=== PATIENT | female | born 1965 | race African-American/Black ===

== ENCOUNTER 2016-09-23 09:48 | Emergency (ER) | payer SELFPAY ==
[2016-09-23] MEDS ORDERED: ASPIRIN 81 MG TABLET, CHEWABLE PO ONE ×2 (10:12→10:21)
--- NOTE | 2016-09-23 10:12 | ER Document Report ---
ED Medical Screen (RME) - General Chief Complaint: Chest Pain Stated Complaint: CHEST PAIN Notes: Is a 51-year-old female who presents emergency department with chest pain that started yesterday. Patient locates the pain in her sternum reproducible on exam. Worse with deep breath. Patient recently treated for bronchitis over the past couple weeks still admits to nonproductive cough. History of asthma but denies history of COPD. Denies any history of hypertension, hyperlipidemia , diabetes, coronary artery disease, previous AL. Patient is a smoker. I have greeted and performed a rapid initial assessment of this patient. A comprehensive ED assessment and evaluation of the patient, analysis of test results and completion of the medical decision making process will be conducted by additional ED providers. TRAVEL OUTSIDE OF THE [place] IN LAST 30 DAYS: No - Related Data Allergies/Adverse Reactions: No Known Allergies Allergy (Verified 09/23/16 09:57) Past Medical History - Past Medical History Cardiac Medical History: Denies: Hx Atrial Fibrillation, Hx Heart Attack Pulmonary Medical History: Reports: Hx Asthma - IN CHILDHOOD -- NO RECENT MEDS Endocrine Medical History: Denies: Hx Diabetes Mellitus Type 1, Hx Diabetes Mellitus Type 2, Hx Hyperthyroidism, Hx Hypothyroidism Renal/ Medical History: Denies: Hx Peritoneal Dialysis GI Medical History: Denies: Hx Gastroesophageal Reflux Disease, Hx Ulcer Psychiatric Medical History: Denies: Hx Anxiety, Hx Depression Past Surgical History: Reports: Hx Cholecystectomy, Hx Tubal Ligation - Immunizations Hx Diphtheria, Pertussis, Tetanus Vaccination: Yes - 2008 Physical Exam - Vital signs Vitals: Temp Pulse Resp BP Pulse Ox 98.0 F 66 20 127/89 H 96 09/23/16 09:57 09/23/16 09:57 09/23/16 09:57 09/23/16 09:57 09/23/16 09:57 - Respiratory Respiratory status: No respiratory distress Chest status: Tender - sternum. pain reproducible on exam, Pain with cough, Pain with deep breathing Breath sounds: Normal Chest palpation: Normal - Cardiovascular Rhythm: Regular Heart sounds: Normal auscultation, S1 appreciated, S2 appreciated Murmur: No Pulses: Normal: Radial Course - Vital Signs Vital signs: Temp Pulse Resp BP Pulse Ox 98.0 F 66 20 127/89 H 96 09/23/16 09:57 09/23/16 09:57 09/23/16 09:57 09/23/16 09:57 09/23/16 09:57
--- NOTE | 2016-09-23 10:26 | ER Document Report ---
ED Cardiac - General Chief Complaint: Chest Pain Stated Complaint: CHEST PAIN Time Seen by Provider: 09/23/16 10:16 Mode of Arrival: Ambulatory Information source: Patient TRAVEL OUTSIDE OF THE [place] IN LAST 30 DAYS: No - HPI Patient complains to provider of: Chest pain Was the onset of pain: Sudden Is the pain a: New problem Chest pain location: Substernal Quality of pain: Stabbing Chest pain radiation location: Right arm Severity now: Moderate Severity at worst: Moderate Chest pain precipitating factors: At Rest Cardiac risk factors: None Positive cardiac history: No Associated symptoms: Fever/chills, Shortness of breath Exacerbated by: Coughing, Deep breaths, Torso movement Relieved by: Nothing Similar symptoms previously: Yes Recently seen / treated by doctor: Yes Notes: Patient is a 51-year-old who presents to the emergency room complaining of sharp stabbing midsternal chest pain that started approximately 2 weeks ago, states she was seen in an emergency room in [place] at the time and diagnosed with bronchitis, she did a course of antibiotics without resolution of symptoms , over the last 24 hours it has become more constant and severe, she reports associated fever and chills, with a nonproductive cough, and shortness of breath , patient denies any past medical problems, she is not a smoker, she did recently travel to [place] by car which is an approximate [address] - Related Data Allergies/Adverse Reactions: No Known Allergies Allergy (Verified 09/23/16 09:57) Past Medical History - General Information source: Patient - Social History Smoking Status: Never Smoker Family History: DM - Mother, Hypertension - Mother Patient has suicidal ideation: No Patient has homicidal ideation: No - Past Medical History Cardiac Medical History: Denies: Hx Atrial Fibrillation, Hx Heart Attack Pulmonary Medical History: Reports: Hx Asthma - IN CHILDHOOD -- NO RECENT MEDS Endocrine Medical History: Denies: Hx Diabetes Mellitus Type 1, Hx Diabetes Mellitus Type 2, Hx Hyperthyroidism, Hx Hypothyroidism Renal/ Medical History: Denies: Hx Peritoneal Dialysis GI Medical History: Denies: Hx Gastroesophageal Reflux Disease, Hx Ulcer Psychiatric Medical History: Denies: Hx Anxiety, Hx Depression Past Surgical History: Reports: Hx Cholecystectomy, Hx Tubal Ligation - Immunizations Hx Diphtheria, Pertussis, Tetanus Vaccination: Yes - 2008 Review of Systems - Review of Systems Constitutional: See HPI EENT: No symptoms reported Cardiovascular: See HPI Respiratory: See HPI Gastrointestinal: No symptoms reported Genitourinary: No symptoms reported Female Genitourinary: No symptoms reported Musculoskeletal: No symptoms reported Skin: No symptoms reported Hematologic/Lymphatic: No symptoms reported Neurological/Psychological: No symptoms reported -: Yes All other systems reviewed and negative Physical Exam - Vital signs Vitals: Temp Pulse Resp BP Pulse Ox 98.0 F 66 20 127/89 H 96 09/23/16 09:57 09/23/16 09:57 09/23/16 09:57 09/23/16 09:57 09/23/16 09:57 Interpretation: Normal - General General appearance: Appears well, Alert - HEENT Head: Normocephalic, Atraumatic Eyes: Normal Pupils: PERRL - Respiratory Respiratory status: No respiratory distress Chest status: Tender - Palpate over midsternum and the right anterior chest wall Breath sounds: Normal Chest palpation: Normal - Cardiovascular Rhythm: Regular Heart sounds: Normal auscultation Murmur: No - Abdominal Inspection: Obese Distension: No distension Bowel sounds: Normal Tenderness: Nontender Organomegaly: No organomegaly - Back Back: Normal, Nontender - Extremities General upper extremity: Normal inspection, Nontender, Normal color, Normal ROM , Normal temperature General lower extremity: Normal inspection, Nontender, Normal color, Normal ROM , Normal temperature, Normal weight bearing. No: Dolores's sign - Neurological Neuro grossly intact: Yes Cognition: Normal Orientation: AAOx4 [place] Coma Scale Eye Opening: Spontaneous [place] Coma Scale Verbal: Oriented Ander Coma Scale Motor: Obeys Commands Ander Coma Scale Total: 15 Speech: Normal Motor strength normal: LUE, RUE, LLE, RLE Sensory: Normal - Psychological Associated symptoms: Normal affect, Normal mood - Skin Skin Temperature: Warm Skin Moisture: Dry Skin Color: Normal Course - Re-evaluation Re-evalutation: 09/23/16 12:44 Laboratory and imaging findings were discussed with patient at bedside which are unremarkable, chest pain is reproducible and has been present for the past 2 weeks, she will be discharged with instructions for follow-up, and advised to return if any additional concerns, patient acknowledges understanding and agreement with this plan - Vital Signs Vital signs: Temp Pulse Resp BP Pulse Ox 98.0 F 66 20 127/89 H 96 09/23/16 09:57 09/23/16 09:57 09/23/16 09:57 09/23/16 09:57 09/23/16 09:57 - Laboratory Result Diagrams: 09/23/16 10:45 09/23/16 10:45 Laboratory results interpreted by me: 09/23/16 09/23/16 10:45 10:45 MCH 26.9 L MCHC 31.5 L D-Dimer 0.54 H - Diagnostic Test Radiology reviewed: Image reviewed, Reports reviewed - EKG Interpretation by Me EKG shows normal: Sinus rhythm Rate: Normal Rhythm: NSR Discharge - Discharge Clinical Impression: Chest wall pain Condition: Stable Disposition: HOME, SELF-CARE Instructions: Anti-Inflammatory Medication ([facility]), Chest Wall Pain ([facility]) Additional Instructions: Follow up with your primary care provider in one to 2 days. Return to the emergency room immediately if symptoms worsen or any additional concerns. Prescriptions: Ibuprofen [Motrin 600 Mg Tablet] 600 mg PO TID #30 tablet
--- NOTE | 2016-09-23 10:51 | RADIOLOGY REPORT (SQ) ---
EXAM DESCRIPTION: CHEST PA/LAT COMPLETED DATE/TIME: 09/23/2016 10:31 am REASON FOR STUDY: chest pain COMPARISON: 11/29/2012 EXAM PARAMETERS: NUMBER OF VIEWS: two views TECHNIQUE: Digital Frontal and Lateral radiographic views of the chest acquired. RADIATION DOSE: NA LIMITATIONS: Poor inspiration. FINDINGS: LUNGS AND PLEURA: No opacities, masses or pneumothorax. No pleural effusion. MEDIASTINUM AND HILAR STRUCTURES: No masses or contour abnormalities. HEART AND VASCULAR STRUCTURES: Heart normal size. No evidence for failure. BONES: No acute findings. HARDWARE: None in the chest. OTHER: No other significant finding. IMPRESSION: Poor inspiration without evidence of acute cardiopulmonary disease. TECHNICAL DOCUMENTATION: JOB ID: [id number] [employer]- All Rights Reserved
[2016-09-23 11:02] LABS: ABSOLUTE EOSINOPHILS # (AUTO) 0.1 10^3/uL (0.0-0.6); ABSOLUTE LYMPHOCYTES (AUTO) 1.6 10^3/uL (0.5-4.7); ABSOLUTE MONOCYTES (AUTO) 0.2 10^3/uL (0.1-1.4); ABSOLUTE NEUT (AUTO) 2.7 10^3/uL (1.7-8.2); BASOPHILS % (AUTO) 0.8 % (0-2); EOSINOPHILS % (AUTO) 2.5 % (0-6); HEMATOCRIT 40.8 % (36.0-47.0); HEMOGLOBIN 12.8 g/dL (12.0-15.5); HGB HCT DIFFERENCE -2.4; LYMPHOCYTES % (AUTO) 34.1 % (13-45); MEAN CORPUSCULAR HEMOGLOBIN 26.9 pg (27.0-33.4); MEAN CORPUSCULAR HGB CONC 31.5 g/dL (32.0-36.0); MEAN CORPUSCULAR VOLUME 86 fl (80-97); MONOCYTES % (AUTO) 5.2 % (3-13); RED BLOOD COUNT 4.77 10^6/uL (3.72-5.28); RED CELL DISTRIBUTION WIDTH 13.9 % (11.5-14.0); SEGMENTED NEUTROPHILS % (AUTO) 57.4 % (42-78); WHITE BLOOD COUNT 4.7 10^3/uL (4.0-10.5)
[2016-09-23 11:17] LABS: ALANINE AMINOTRANSFERASE 38 U/L (9-52); ALKALINE PHOSPHATASE 61 U/L (38-126); ANION GAP 12 (5-19); ASPARTATE AMINO TRANSFERASE 34 U/L (14-36); BILIRUBIN,DIRECT 0.4 mg/dL (0.0-0.4); BILIRUBIN,TOTAL 0.6 mg/dL (0.2-1.3); BLOOD UREA NITROGEN 11 mg/dL (7-20); CALCIUM 8.9 mg/dL (8.4-10.2); CARBON DIOXIDE 27 mmol/L (22-30); CHLORIDE 104 mmol/L (98-107); CREATINE KINASE 46 U/L (30-135); CREATININE RESULT 0.78 mg/dL (0.52-1.25); GLUCOSE 92 mg/dL (75-110); POTASSIUM 4.5 mmol/L (3.6-5.0); SODIUM 142.5 mmol/L (137-145); TOTAL PROTEIN 8.1 g/dL (6.3-8.2)
[2016-09-23 11:31] LABS: CREATINE KINASE MB < 0.22 ng/mL (<4.55); TROPONIN I < 0.012 ng/mL
--- NOTE | 2016-09-23 12:31 | RADIOLOGY REPORT (SQ) ---
EXAM DESCRIPTION: CTA CHEST COMPLETED DATE/TIME: 09/23/2016 12:21 pm REASON FOR STUDY: SOB COMPARISON: None. TECHNIQUE: CT scan of the chest performed using helical scanning technique with dynamic intravenous contrast injection. Images reviewed with lung, soft tissue and bone windows. Reconstructed coronal and sagittal MPR images reviewed. Additional 3 dimensional post-processing performed to develop Maximal Intensity Projection images (FL P). All images stored on PACS. All CT scanners at this facility use dose modulation, iterative reconstruction, and/or weight based d osing when appropriate to reduce radiation dose to as low as reasonably achievable (ALARA). [facility]: Dose Right [facility]: CareDose [facility]: Dose Right [facility]: Teradose 4D [facility]: toucanBox CONTRAST TYPE AND DOSE: 100 Isovue 370- low osmolar. RENAL FUNCTION: BUN 11 creatinine 0.8 RADIATION DOSE: Up-to-date CT equipment and radiation dose reduction techniques were employed. CTDIv ol: 16.5 - 19.2 mGy. DLP: 561 mGy-cm. . LIMITATIONS: Motion. FINDINGS: LUNGS AND PLEURA: No evidence of pulmonary edema or pneumonia. AORTA AND GREAT VESSELS: No aneurysm or dissection. HEART: Cardiomegaly. No pericardial effusion. PULMONARY ARTERIES: No emboli visualized in the main pulmonary arteries or the segmental branches. HILAR AND MEDIASTINAL STRUCTURES: No identified masses or abnormal nodes. HARDWARE: None in the chest. UPPER ABDOMEN: No acute findings. Limited exam. THYROID AND OTHER SOFT TISSUES: No masses. No adenopathy. BONES: No acute or significant finding. 3D MIPS: Confirm above findings. OTHER: No other significant finding. IMPRESSION: No evidence pulmonary embolus. TECHNICAL DOCUMENTATION: JOB ID: [id number] Quality ID # [id number]: Final reports with documentation of one or more dose reduction techniques (e.g., Au tomated exposure control, adjustment of the mA and/or kV according to patient size, use of iterative reconstruction technique) 2010 [employer]- All Rights Reserved
--- NOTE | 2016-09-23 12:40 | EKG REPORT ---
SEVERITY:- BORDERLINE ECG - SINUS RHYTHM BORDERLINE T WAVE ABNORMALITIES : Confirmed by: Jitendra Ojeda MD 23-Sep-2016 12:39:24
[2016-09-23 14:29] VITALS: BP 137/78
== END 2016-09-23 13:30 | disposition home or self-care (01) ==
LOC: ER 09:48
DX: R07.89 Other chest pain (principal); J44.9 Chronic obstructive pulmonary disease, unspecified; Z90.49 Acquired absence of other specified parts of digestive tract; Z98.51 Tubal ligation status
CPT/HCPCS: 36415; 71020; 71275; 80053; 82550; 82553; 83880; 84484; 85025; 85379; 93005; 93010; 99285

== ENCOUNTER 2016-10-07 09:17 | Emergency (ER) | payer OTHER ==
[2016-10-07 09:26] VITALS: BP 131/81
[2016-10-07] MEDS ORDERED: CYCLOBENZAPRINE HCL 10 MG TABLET PO ONE (10:33)
[2016-10-07] MEDS ORDERED: KETOROLAC TROMETHAMINE INJ/PF 30 MG/1 ML SDV IM ONE (10:33)
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
== END 2016-10-07 10:54 | disposition home or self-care (01) ==
LOC: ER 09:17
DX: M54.2 Cervicalgia (principal); V89.2XXA Person injured in unspecified motor-vehicle accident, traffic, initial encounter; Z90.49 Acquired absence of other specified parts of digestive tract; Z98.51 Tubal ligation status
CPT/HCPCS: 99283; 96372; J1885

== ENCOUNTER 2016-11-15 05:48 | Emergency (ER) | payer OTHER ==
[2016-11-15] MEDS ORDERED: KETOROLAC TROMETHAMINE 60 MG/2 ML SDV IM ONE (06:57)
[2016-11-15] MEDS ORDERED: PREDNISONE 20 MG TABLET PO ONE (06:57)
[2016-11-15] MEDS ORDERED: LIDOCAINE 5% (700 MG) TRANSDERMAL ADH..PATCH TP ONE (06:57)
--- NOTE | 2016-11-15 07:40 | RADIOLOGY REPORT (SQ) ---
EXAM DESCRIPTION: HIP RIGHT AP/LATERAL COMPLETED DATE/TIME: 11/15/2016 7:30 am REASON FOR STUDY: hip pain COMPARISON: None. NUMBER OF VIEWS: Two views. TECHNIQUE: AP pelvis and additional frog-leg view of the right hip. LIMITATIONS: None. FINDINGS: MINERALIZATION: Normal. RIGHT HIP: No fracture or dislocation. No worrisome bone lesions. LEFT HIP: No fracture or dislocation. No worrisome bone lesions. PUBIS AND ISCHIUM: No fracture. PELVIS: No fracture. SACRUM: No fracture or dislocation. No worrisome bone lesions. LOWER LUMBAR SPINE: No fracture or dislocation. No worrisome bone lesions. No significant disc disea se. L5 transitional vertebral body. SOFT TISSUES: No findings. OTHER: No other significant finding. IMPRESSION: NEGATIVE STUDY OF THE RIGHT HIP. NO RADIOGRAPHIC EVIDENCE OF ACUTE INJURY. TECHNICAL DOCUMENTATION: JOB ID: [id number] [employer]- All Rights Reserved
--- NOTE | 2016-11-15 08:00 | ER Document Report ---
ED General - General Chief Complaint: Hip Pain Stated Complaint: HIP PAIN Time Seen by Provider: 11/15/16 06:22 TRAVEL OUTSIDE OF THE [place] IN LAST 30 DAYS: No - HPI Patient complains to provider of: Right hip pain Notes: Patient coming in for right hip pain pain going down the back of her leg to her foot. Patient states pain started yesterday denies any injury states occurred while she was getting up from the couch. Denies any history of similar back pain denies any bowel or bladder incontinence. Denies any numbness or tingling. Patient states able ambulate however painful. Painful also raise her leg. Patient has not taken anything [id number] for her pain. - Related Data Allergies/Adverse Reactions: No Known Allergies Allergy (Verified 10/07/16 09:23) Past Medical History - Social History Smoking Status: Never Smoker Chew tobacco use (# tins/day): No Frequency of alcohol use: Rare Drug Abuse: None Family History: DM - Mother, Hypertension - Mother - Past Medical History Cardiac Medical History: Denies: Hx Atrial Fibrillation, Hx Heart Attack Pulmonary Medical History: Reports: Hx Asthma - IN CHILDHOOD -- NO RECENT MEDS Endocrine Medical History: Denies: Hx Diabetes Mellitus Type 1, Hx Diabetes Mellitus Type 2, Hx Hyperthyroidism, Hx Hypothyroidism Renal/ Medical History: Denies: Hx Peritoneal Dialysis GI Medical History: Denies: Hx Gastroesophageal Reflux Disease, Hx Ulcer Psychiatric Medical History: Denies: Hx Anxiety, Hx Depression Past Surgical History: Reports: Hx Cholecystectomy, Hx Tubal Ligation - Immunizations Hx Diphtheria, Pertussis, Tetanus Vaccination: Yes - 2008 Review of Systems - Review of Systems Constitutional: No symptoms reported EENT: No symptoms reported Cardiovascular: No symptoms reported Respiratory: No symptoms reported Gastrointestinal: No symptoms reported Genitourinary: No symptoms reported Female Genitourinary: No symptoms reported Musculoskeletal: Back pain Skin: No symptoms reported Hematologic/Lymphatic: No symptoms reported Neurological/Psychological: No symptoms reported -: Yes All other systems reviewed and negative Physical Exam - Vital signs Vitals: Temp Pulse Resp BP Pulse Ox 97.9 F 67 20 124/76 98 11/15/16 05:50 11/15/16 05:50 11/15/16 05:50 11/15/16 05:50 11/15/16 05:50 Interpretation: Normal - General General appearance: Appears well, Alert - HEENT Head: Normocephalic, Atraumatic Eyes: Normal Pupils: PERRL - Respiratory Respiratory status: No respiratory distress Chest status: Nontender Breath sounds: Normal Chest palpation: Normal - Cardiovascular Rhythm: Regular Heart sounds: Normal auscultation Murmur: No - Abdominal Inspection: Normal Distension: No distension Bowel sounds: Normal Tenderness: Nontender Organomegaly: No organomegaly - Back Back: Normal, Nontender Notes: Pain on the right side is reproducible at a straight H of approximately 30. Patient also has reproduction of symptoms upon. Palpation of the piriformis muscle left side and affect - Extremities General upper extremity: Normal inspection, Nontender, Normal color, Normal ROM , Normal temperature General lower extremity: Normal inspection, Nontender, Normal color, Normal ROM , Normal temperature, Normal weight bearing. No: Dolores's sign - Neurological Neuro grossly intact: Yes Cognition: Normal Orientation: AAOx4 [place] Coma Scale Eye Opening: Spontaneous Ander Coma Scale Verbal: Oriented [place] Coma Scale Motor: Obeys Commands [place] Coma Scale Total: 15 Speech: Normal Motor strength normal: LUE, RUE, LLE, RLE Sensory: Normal - Psychological Associated symptoms: Normal affect, Normal mood - Skin Skin Temperature: Warm Skin Moisture: Dry Skin Color: Normal Course - Re-evaluation Re-evalutation: 11/15/16 13:31 Examinations consistent with sciatic pain. X-ray of the patient's hip was negative. Patient was encouraged to perform stretching exercises lose weight take medications as prescribed. Patient states understanding The patient presents with low back pain without signs of spinal cord compression, cauda equina syndrome, infection, aneurysm, or other serious etiology. The patient is neurologically intact. Given the extremely low risk of these diagnoses further testing and evaluation for these possibilities does not appear to be indicated at this time. The patient has been instructed to return if the symptoms worsen or change in any way. - Vital Signs Vital signs: Temp Pulse Resp BP Pulse Ox 97.9 F 58 L 16 123/78 98 11/15/16 09:14 11/15/16 09:14 11/15/16 09:14 11/15/16 09:14 11/15/16 09:14 Discharge - Discharge Clinical Impression: Sciatic leg pain Hip pain Qualifiers: Laterality: right Qualified Code(s): M25.551 - Pain in right hip Condition: Good Disposition: HOME, SELF-CARE Instructions: Arthralgia ([facility]), Oral Narcotic Medication ([facility]), Sciatica ([facility]) Additional Instructions: Follow-up with your primary care physician. Return to the ER symptoms worsen. Take medications as prescribed. Return to the ER if symptoms worsen. Prescriptions: Prednisone [Deltasone 20 mg Tablet] 3 tab PO DAILY #24 tablet Tramadol HCl [Ultram] 50 mg PO TID #20 tablet Forms: Return to Work
[2016-11-15 09:14] VITALS: BP 123/78
== END 2016-11-15 09:14 | disposition home or self-care (01) ==
LOC: ER 05:48
DX: M54.30 Sciatica, unspecified side (principal); M25.551 Pain in right hip
CPT/HCPCS: 99283; 96372; 73502; J1885; J7512

== ENCOUNTER 2017-07-19 16:12 | Emergency (ER) | payer OTHER ==
[2017-07-19] MEDS ORDERED: FENTANYL CITRATE INJ/PF 100 MCG/2 ML AMPUL IV ONE (17:20)
--- NOTE | 2017-07-19 17:23 | ER Document Report ---
ED Medical Screen (RME) - General Chief Complaint: Flank Pain Stated Complaint: LOWER BACK PAIN Time Seen by Provider: 07/19/17 17:20 Notes: About an hour and a half ago, patient was sitting on the couch watching TV when she had sudden onset of pain in her left flank. She went to the bathroom and urinated and noted blood in her urine. Pain was so severe that they called EMS to come pick her up. In route here, patient was given Toradol 30 mg IV but she says that has not helped her pain at all. She has never had a kidney stone before. Is nauseated but not vomiting. No fevers. PMH: Cholecystectomy, BTL. TRAVEL OUTSIDE OF THE [place] IN LAST 30 DAYS: No - Related Data Allergies/Adverse Reactions: No Known Allergies Allergy (Verified 07/19/17 16:13) Past Medical History - Social History Chew tobacco use (# tins/day): No Frequency of alcohol use: Rare - Past Medical History Cardiac Medical History: Denies: Hx Atrial Fibrillation, Hx Heart Attack Pulmonary Medical History: Reports: Hx Asthma - IN CHILDHOOD -- NO RECENT MEDS Endocrine Medical History: Denies: Hx Diabetes Mellitus Type 1, Hx Diabetes Mellitus Type 2, Hx Hyperthyroidism, Hx Hypothyroidism Renal/ Medical History: Denies: Hx Peritoneal Dialysis GI Medical History: Denies: Hx Gastroesophageal Reflux Disease, Hx Ulcer Psychiatric Medical History: Denies: Hx Anxiety, Hx Depression Past Surgical History: Reports: Hx Cholecystectomy, Hx Tubal Ligation - Immunizations Hx Diphtheria, Pertussis, Tetanus Vaccination: Yes - 2008 Physical Exam - Vital signs Vitals: Temp Pulse Resp BP Pulse Ox 97.9 F 76 17 134/69 H 95 07/19/17 16:16 07/19/17 16:16 07/19/17 16:16 07/19/17 16:16 07/19/17 16:16 Course - Vital Signs Vital signs: Temp Pulse Resp BP Pulse Ox 97.9 F 76 17 134/69 H 95 07/19/17 16:16 07/19/17 16:16 07/19/17 16:16 07/19/17 16:16 07/19/17 16:16
[2017-07-19 17:29] LABS: ABSOLUTE EOSINOPHILS # (AUTO) 0.1 10^3/uL (0.0-0.6); ABSOLUTE LYMPHOCYTES (AUTO) 3.1 10^3/uL (0.5-4.7); ABSOLUTE MONOCYTES (AUTO) 0.5 10^3/uL (0.1-1.4); ABSOLUTE NEUT (AUTO) 3.6 10^3/uL (1.7-8.2); BASOPHILS % (AUTO) 0.4 % (0-2); EOSINOPHILS % (AUTO) 1.8 % (0-6); HEMATOCRIT 40.2 % (36.0-47.0); HEMOGLOBIN 13.2 g/dL (12.0-15.5); LYMPHOCYTES % (AUTO) 41.8 % (13-45); MEAN CORPUSCULAR HGB CONC 32.9 g/dL (32.0-36.0); MEAN CORPUSCULAR VOLUME 85 fl (80-97); PLATELET COUNT 238 10^3/uL (150-450); RED BLOOD COUNT 4.72 10^6/uL (3.72-5.28); RED CELL DISTRIBUTION WIDTH 13.9 % (11.5-14.0); TOTAL CELLS COUNTED % (AUTO) 100 %; WHITE BLOOD COUNT 7.4 10^3/uL (4.0-10.5)
[2017-07-19 17:37] LABS: ALANINE AMINOTRANSFERASE 28 U/L (9-52); ALBUMIN 4.1 g/dL (3.5-5.0); ALKALINE PHOSPHATASE 59 U/L (38-126); ANION GAP 12 (5-19); ASPARTATE AMINO TRANSFERASE 23 U/L (14-36); BILIRUBIN,DIRECT 0.3 mg/dL (0.0-0.4); BILIRUBIN,TOTAL 0.3 mg/dL (0.2-1.3); BLOOD UREA NITROGEN 13 mg/dL (7-20); CALCIUM 9.8 mg/dL (8.4-10.2); CARBON DIOXIDE 28 mmol/L (22-30); CHLORIDE 104 mmol/L (98-107); GLUCOSE 103 mg/dL (75-110); LIPASE 216.6 U/L (23-300); POTASSIUM 4.6 mmol/L (3.6-5.0); SODIUM 143.8 mmol/L (137-145); TOTAL PROTEIN 7.6 g/dL (6.3-8.2)
[2017-07-19] MEDS ORDERED: NORMAL SALINE 1000 ML 1,000 ML IV ONE (19:14)
[2017-07-19] MEDS ORDERED: ONDANSETRON HCL INJ/PF 4 MG/2 ML SDV IV ONE (19:14)
[2017-07-19 19:38] LABS: APPEARANCE,URINE CLOUDY; BILIRUBIN,URINE NEGATIVE (NEGATIVE); COLOR,URINE YELLOW; GLUCOSE, URINE NEGATIVE (NEGATIVE); KETONES,URINE NEGATIVE (NEGATIVE); LEUKOCYTE ESTERASE,URINE SMALL (NEGATIVE); NITRITE,URINE NEGATIVE (NEGATIVE); PROTEIN,URINE NEGATIVE (NEGATIVE); URINE SPECIFIC GRAVITY 1.036
--- NOTE | 2017-07-19 20:15 | ER Document Report ---
ED GI/ - General Mode of Arrival: Ambulatory Information source: Patient TRAVEL OUTSIDE OF THE [place] IN LAST 30 DAYS: No <EDGAR MONTES - Last Filed: 07/19/17 20:53> <PRAVEEN MACK - Last Filed: 07/19/17 21:31> - General Chief Complaint: Flank Pain Stated Complaint: LOWER BACK PAIN Time Seen by Provider: 07/19/17 17:20 Notes: Patient is a 52-year-old female that presents to the emergency department today with complaints of left-sided flank pain. Patient states the pain started all of a sudden it feels like a "shot in the back with spasm and a sharp pain". Patient states she does not have a history of kidney stones. Patient states when trying to avoid she was unable to and then when she finally could it was painful. Patient denies any cough, nausea, or vomiting. (EDGAR MONTES) - Related Data Allergies/Adverse Reactions: No Known Allergies Allergy (Verified 07/19/17 16:13) Past Medical History - General Information source: Patient - Social History Smoking Status: Never Smoker Cigarette use (# per day): No Chew tobacco use (# tins/day): No Frequency of alcohol use: Rare Lives with: Family Family History: Reviewed & Not Pertinent, DM - Mother, Hypertension - Mother Patient has suicidal ideation: No Patient has homicidal ideation: No Pulmonary Medical History: Reports: Hx Asthma - IN CHILDHOOD -- NO RECENT MEDS Past Surgical History: Reports: Hx Cholecystectomy, Hx Tubal Ligation - Immunizations Hx Diphtheria, Pertussis, Tetanus Vaccination: Yes - 2008 <EDGAR MONTES - Last Filed: 07/19/17 20:53> Review of Systems - Review of Systems Constitutional: No symptoms reported EENT: No symptoms reported Cardiovascular: No symptoms reported Respiratory: denies: Cough Gastrointestinal: denies: Diarrhea, Nausea, Vomiting Genitourinary: See HPI, Flank pain - left, Urgency, Retention Female Genitourinary: No symptoms reported Musculoskeletal: No symptoms reported Skin: No symptoms reported Hematologic/Lymphatic: No symptoms reported Neurological/Psychological: No symptoms reported -: Yes All other systems reviewed and negative <EDGAR MONTES - Last Filed: 07/19/17 20:53> Physical Exam <EDGAR MONTES - Last Filed: 07/19/17 20:53> <PRAVEEN MACK - Last Filed: 07/19/17 21:31> - Vital signs Vitals: Temp Pulse Resp BP Pulse Ox 97.9 F 76 17 134/69 H 95 07/19/17 16:16 07/19/17 16:16 07/19/17 16:16 07/19/17 16:16 07/19/17 16:16 - Notes Notes: Physical Exam: General: Alert, appears uncomfortable. HEENT: Normocephalic. Atraumatic. PERRL. Extraocular movements intact. Oropharynx clear. Neck: Supple. Non-tender. Respiratory: No respiratory distress. Clear and equal breath sounds bilaterally. Cardiovascular: Regular rate and rhythm. Abdominal: Obese. Non-tender. No distension. Normal Bowel Sounds. Back: Left flank tenderness with percussion. No deformity or step off. Extremities: Moves all four extremities. Upper extremities: Normal inspection. Normal ROM. Lower extremities: Normal inspection. No edema. Normal ROM. Neurological: Normal cognition. AAOx4. Normal speech. Psychological: Normal affect. Normal Mood. Skin: Warm. Dry. Normal color. (EDGAR MONTES) Course - Laboratory Result Diagrams: 07/19/17 15:57 07/19/17 15:57 <EDGAR MONTES - Last Filed: 07/19/17 20:53> - Laboratory Result Diagrams: 07/19/17 15:57 07/19/17 15:57 <PRAVEEN MACK - Last Filed: 07/19/17 21:31> - Re-evaluation Re-evalutation: 07/19/17 20:20 Patient is feeling better after nausea medication. She is able to keep medications down. Updated about UTI and that she will be given antibiotics. Agrees with this plan. 07/19/17 21:24 Patient presents with dysuria and left-sided flank pain. She is also nauseated earlier. Pain and nausea have been controlled here in the emergency department with medications. Urine is consistent with infection and probably pyelonephritis. No evidence for kidney stone at this time. Patient is complaining of burning with urination. She will be discharged home with Keflex and is to return if she has any worsening or concerning symptoms such as fever, severe pain, or vomiting. Understands and agrees with plan. Stable for discharge. (PRAVEEN MACK) - Vital Signs Vital signs: Temp Pulse Resp BP Pulse Ox 98.1 F 72 18 125/77 97 07/19/17 20:33 07/19/17 20:33 07/19/17 20:33 07/19/17 20:33 07/19/17 20:33 - Laboratory Laboratory results interpreted by me: 07/19/17 18:23 Urine Urobilinogen 2.0 H Ur Leukocyte Esterase SMALL H Urine Ascorbic Acid 20 H Discharge <EDGAR MONTES - Last Filed: 07/19/17 20:53> <PRAVEEN MACK - Last Filed: 07/19/17 21:31> - Discharge Clinical Impression: Pyelonephritis Condition: Stable Disposition: HOME, SELF-CARE Instructions: Family Physicians / Practices, Pyelonephritis ([facility]) Additional Instructions: Please follow-up with your doctor this week. Please return immediately if you have any fever, vomiting, increased pain, or further concerns. Prescriptions: Ondansetron [Zofran Odt 4 mg Tablet] 1 tab PO Q6HP PRN #15 tab.rapdis PRN Reason: For Nausea/Vomiting Cephalexin Monohydrate [Keflex 500 mg Capsule] 500 mg PO Q6H 10 Days #40 capsule Hydrocodone/Acetaminophen [[place] 5-325 mg Tablet] 1 tab PO BIDP PRN #10 tablet PRN Reason: Forms: Return to Work Scribe Attestation: 07/19/17 21:31 I personally performed the services described in the documentation, reviewed and edited the documentation which was dictated to the scribe in my presence, and it accurately records my words and actions. (PRAVEEN MACK)
[2017-07-19] MEDS ORDERED: CEFTRIAXONE INJ 1000 MG VIAL ONE (20:31)
[2017-07-19 20:38] VITALS: BP 125/77
[2017-07-19] MEDS ORDERED: CEFTRIAXONE 1 GM/D5W RTU 1 GM/50 ML RTUPB IV ONE (21:00)
[2017-07-19] MEDS ORDERED: HYDROCODONE/ACETAMINOPHEN 5-325 MG (6 TAB/ER DISP) PO PRN (21:27)
[2017-07-19] MEDS ORDERED: ONDANSETRON ODT 4 MG TAB (6 TAB/ER DISP) PO PRN (21:27)
== END 2017-07-19 21:35 | disposition home or self-care (01) ==
LOC: ER 16:12
DX: N12 Tubulo-interstitial nephritis, not specified as acute or chronic (principal); R10.9 Unspecified abdominal pain; R39.15 Urgency of urination; R33.9 Retention of urine, unspecified; R30.0 Dysuria; R11.0 Nausea
CPT/HCPCS: 99284; 96361; 96374; 96375; 36415; 87086; 83690; 85025; 80053; 81001; J3010; J0696; J2405; J7030

== ENCOUNTER 2017-10-08 07:58 | Emergency (ER) | payer OTHER ==
[2017-10-08] MEDS ORDERED: HYDROCODONE/ACETAMINOPHEN 5-325 MG TABLET PO ONE (09:04)
[2017-10-08] MEDS ORDERED: IBUPROFEN 800 MG TABLET PO ONE (09:04)
--- NOTE | 2017-10-08 09:06 | ER Document Report ---
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 Patient reports that she was lifting heavy bags on September 22 and felt a pulling in bilateral hands. Patient states since then she has had persistent pain to bilateral hands. Patient states that her hands have been swollen with the right being worse than the left. Associated Symptoms: Other - Bilateral hand pain. denies: Fever Exacerbated by: Movement Relieved by: Denies Similar symptoms previously: No Recently seen / treated by doctor: No - ROS ROS below otherwise negative: Yes Systems Reviewed and Negative: Yes All other systems reviewed and negative - CONSTITUTIONAL Constitutional: DENIES: Fever - NEURO Neurology: DENIES: Weakness - REPRODUCTIVE Reproductive: DENIES: : - MUSCULOSKELETAL Musculoskeletal: REPORTS: Extremity pain, Swelling - DERM Skin Color: Normal Skin Problems: None Past Medical History - General Information source: Patient - Social History Smoking Status: Never Smoker Frequency of alcohol use: None Drug Abuse: None Occupation: Laundry Family History: Reviewed & Not Pertinent, DM - Mother, Hypertension - Mother - Past Medical History Cardiac Medical History: Denies: Hx Atrial Fibrillation, Hx Heart Attack Pulmonary Medical History: Reports: Hx Asthma - IN CHILDHOOD -- NO RECENT MEDS Endocrine Medical History: Denies: Hx Diabetes Mellitus Type 1, Hx Diabetes Mellitus Type 2, Hx Hyperthyroidism, Hx Hypothyroidism Renal/ Medical History: Denies: Hx Peritoneal Dialysis GI Medical History: Denies: Hx Gastroesophageal Reflux Disease, Hx Ulcer Psychiatric Medical History: Denies: Hx Anxiety, Hx Depression Past Surgical History: Reports: Hx Cholecystectomy, Hx Tubal Ligation - Immunizations Hx Diphtheria, Pertussis, Tetanus Vaccination: Yes - 2008 Vertical Provider Document - CONSTITUTIONAL Agree With Documented VS: Yes Exam Limitations: No Limitations General Appearance: WD/WN, No Apparent Distress - INFECTION CONTROL TRAVEL OUTSIDE OF THE [place] IN LAST 30 DAYS: No - HEENT HEENT: Atraumatic, Normocephalic - NECK Neck: Normal Inspection - RESPIRATORY Respiratory: Breath Sounds Normal, No Respiratory Distress - CARDIOVASCULAR Cardiovascular: Regular Rate, Regular Rhythm Pulses: Normal: Radial - MUSCULOSKELETAL/EXTREMETIES Musculoskeletal/Extremeties: MAEW - NEURO Level of Consciousness: Awake, Alert, Appropriate Motor/Sensory: No Motor Deficit - DERM Integumentary: Warm, Dry Course - Re-evaluation Re-evalutation: 10/08/17 09:05 Patient with ring to right hand. Patient declines having a ring removed today. Normal cap refill, no concern for vascular compromise at this time. 10/08/17 10:52 Patient with generalized bilateral hand tenderness. Right hand swelling worse than left. Patient is right-hand dominant. Normal skin color and temperature overlying joints of the hand and fingers. No concern for tenosynovitis, septic arthritis or gout. She encouraged to follow-up with a hand specialist. Patient also advised to limit repetitive movements of the hands. - Vital Signs Vital signs: Temp Pulse Resp BP Pulse Ox 98.3 F 66 17 137/82 H 96 10/08/17 08:02 10/08/17 08:02 10/08/17 08:02 10/08/17 08:02 10/08/17 08:02 - Diagnostic Test Radiology reviewed: Reports reviewed Discharge - Discharge Clinical Impression: Overuse injury, Bilateral hand pain Condition: Stable Disposition: HOME, SELF-CARE Instructions: Overuse Syndrome ([facility]) Additional Instructions: Return immediately for any new or worsening symptoms Followup with your primary care provider, call tomorrow to make a followup appointment Follow-up with a hand specialist for further evaluation, call today for an appointment Prescriptions: Hydrocodone/Acetaminophen [[place] 5-325 Tablet] 1 each PO Q6 PRN #12 tablet PRN Reason: Naproxen [Naprosyn 250 Nmg Tablet] 1 tab PO BID #14 tablet Forms: Return to Work Referrals: DEREJE KIDD DO [ACTIVE STAFF] - Follow up tomorrow
--- NOTE | 2017-10-08 09:41 | RADIOLOGY REPORT (SQ) ---
EXAM DESCRIPTION: HAND BILATERAL 3 VIEWS COMPLETED DATE/TIME: 10/08/2017 9:24 am REASON FOR STUDY: bilat hand pain COMPARISON: None. EXAM PARAMETERS: NUMBER OF VIEWS: Three views. TECHNIQUE: AP, lateral and oblique radiographic images acquired of the right and left hand. LIMITATIONS: None. FINDINGS: MINERALIZATION: Normal. BONES: No acute fracture or dislocation. No worrisome bone lesions. No significant osteophytes. JOINTS: No erosions. No tanvir-articular osteopenia. No chondrocalcinosis. SOFT TISSUES: No swelling. No calcifications. OTHER: No other significant finding. IMPRESSION: NEGATIVE STUDY OF THE RIGHT AND LEFT HANDS. NO EXPLANATION FOR PAIN. TECHNICAL DOCUMENTATION: JOB ID: [id number] [employer]- All Rights Reserved Reading location - IP/workstation name: [email or web address]
[2017-10-08 11:21] VITALS: BP 134/73
== END 2017-10-08 11:21 | disposition home or self-care (01) ==
LOC: ER 07:58
DX: M79.642 Pain in left hand (principal); M79.641 Pain in right hand; X50.0XXA Overexertion from strenuous movement or load, initial encounter; Y93.E2 Activity, laundry; Y99.0 Civilian activity done for income or pay; Z90.49 Acquired absence of other specified parts of digestive tract; Z98.51 Tubal ligation status
CPT/HCPCS: 99283